=== PATIENT | female | born 1980 | race African-American/Black ===

== ENCOUNTER 2017-03-28 18:51 | Emergency (ER) | payer SELFPAY ==
[2017-03-28] MEDS ORDERED: RINGERS SOLUTION,LACTATED 1,000 ML IV ONE (19:44)
[2017-03-28] MEDS ORDERED: METOCLOPRAMIDE HCL INJ/PF 10 MG/2 ML SDV IV ONE (19:45)
--- NOTE | 2017-03-28 19:45 | ER Document Report ---
ED GI/ - General Mode of Arrival: Ambulatory Information source: Patient TRAVEL OUTSIDE OF THE [place] IN LAST 30 DAYS: No - HPI Patient complains to provider of: Abdominal pain Onset: Just prior to arrival Similar symptoms previously: Yes Recently seen / treated by doctor: Yes <CATALINA ROBIN - Last Filed: 03/29/17 02:37> <SUZANNE GARCIA - Last Filed: 04/10/17 11:18> - General Chief Complaint: Abdominal Pain Stated Complaint: ABDOMINAL PAIN Time Seen by Provider: 03/28/17 19:27 Notes: Patient is a 36-year-old female who presents to the emergency department today with complaints of abdominal pain with vomiting. Patient states she was diagnosed with gastroparesis approximately 3-1/2 years ago and is being followed by a GI specialist in [place] where she currently is living. Patient states she is here for her nephew's graduation and she ran out of her Reglan yesterday. (CATALINA ROBIN) - Related Data Allergies/Adverse Reactions: No Known Allergies Allergy (Unverified 03/28/17 19:21) Past Medical History - General Information source: Patient - Social History Smoking Status: Never Smoker Cigarette use (# per day): No Chew tobacco use (# tins/day): No Frequency of alcohol use: None Drug Abuse: None Lives with: Family Family History: Reviewed & Not Pertinent Patient has suicidal ideation: No Patient has homicidal ideation: No GI Medical History: Reports: Hx Gastroesophageal Reflux Disease Past Surgical History: Reports: Hx Cholecystectomy, Hx Tubal Ligation <CATALINA ROBIN - Last Filed: 03/29/17 02:37> Review of Systems - Review of Systems Constitutional: No symptoms reported EENT: No symptoms reported Cardiovascular: No symptoms reported Respiratory: No symptoms reported Gastrointestinal: See HPI, Abdominal pain, Nausea, Vomiting Genitourinary: No symptoms reported Female Genitourinary: No symptoms reported Musculoskeletal: No symptoms reported Skin: No symptoms reported Hematologic/Lymphatic: No symptoms reported Neurological/Psychological: No symptoms reported -: Yes All other systems reviewed and negative <CATALINA ROBIN - Last Filed: 03/29/17 02:37> Physical Exam <CATALINA ROBIN - Last Filed: 03/29/17 02:37> <SUZANNE GARCIA - Last Filed: 04/10/17 11:18> - Vital signs Vitals: Pulse Resp BP Pulse Ox 101 H 20 147/100 H 100 03/28/17 18:57 03/28/17 18:57 03/28/17 18:57 03/28/17 18:57 - Notes Notes: Physical Exam: General: Belligerent, curled up into position writhing around in apparent pain. HEENT: Normocephalic. Atraumatic. PERRL. Extraocular movements intact. Oropharynx clear. Neck: Supple. Non-tender. Respiratory: No respiratory distress. Clear and equal breath sounds bilaterally. Cardiovascular: Regular rate and rhythm. Abdominal: Mild diffuse abdominal tenderness with palpation. No distension. Normal Bowel Sounds. Back: Non-tender. No deformity or step off. Extremities: Moves all four extremities. Upper extremities: Normal inspection. Normal ROM. Lower extremities: Normal inspection. No edema. Normal ROM. Neurological: Normal cognition. AAOx4. Normal speech. Skin: Warm. Dry. Normal color. (CATALINA ROBIN) Course - Laboratory Result Diagrams: 03/28/17 17:00 03/28/17 17:00 <CATALINA ORBIN - Last Filed: 03/29/17 02:37> - Laboratory Result Diagrams: 03/28/17 17:00 03/28/17 17:00 <SUZANNE GARCIA - Last Filed: 04/10/17 11:18> - Re-evaluation Re-evalutation: 03/28/17 21:10 Presents emergency department yelling and screaming at the top of her legs demanding Dilaudid on examination in a position screening with her mom at the bedside history of chronic abdominal pain gastroparesis visiting from [place] states that she goes to the emergency room and they always give her Dilaudid. States she ran out of the Reglan yesterday and has a GI specialist there. States her typical episode of her gastroparesis not associated with any active vomiting at the bedside. Denies a chance of urinary symptoms or anything different from her previous episodes. No fevers or chills. Patient way out of proportion to physical exam yelling and screaming at the top of her lungs to the point where stroke patient family members became concerned and we had to go in and tell her to calm down and stop yelling. Serial abdominal examinations no active vomiting no acute guarding rebound rigidity pulsatile no masses or hernias. Good bowel sounds and no acute surgical findings. Labs are stable and nonacute. Patient did not produce any urine sample. Patient begging and pleading for Dilaudid I explained to her that I am not going to treat gastroparesis with narcotics as that is opposite treatment for gastroparesis and her GI specialist told her the same. Discharge her on a prescription for Reglan follow-up with her GI specialist primary care in 2-3 days and discussed reasons for ED return sooner (SUZANNE GARCIA) - Vital Signs Vital signs: Temp Pulse Resp BP Pulse Ox 101 H 22 H 122/81 100 03/28/17 18:57 03/28/17 21:01 03/28/17 21:01 03/28/17 21:01 - Laboratory Laboratory results interpreted by me: 03/28/17 03/28/17 17:00 17:00 Hgb 11.2 L Hct 35.6 L MCHC 31.3 L RDW 16.9 H Potassium 3.3 L Glucose 117 H AST 38 H Total Protein 8.7 H Discharge <CATALINA ROBIN - Last Filed: 03/29/17 02:37> <SUZANNE GARCIA - Last Filed: 04/10/17 11:18> - Discharge Clinical Impression: Chronic abdominal pain, history gastroparesis Condition: Stable Disposition: HOME, SELF-CARE Instructions: Abdominal Pain ([facility]) Additional Instructions: Abdominal Pain There are many causes of abdominal pain. Pain can mean a serious problem requiring surgery (such as appendicitis). It can also be an innocent problem that goes away on its own (such as a viral infection). Often, time must pass to determine the cause of pain. The physician does not feel that hospitalization is necessary, at present. Things may change within the next 24 hours. Call the doctor or come back for re- examination if any problems occur, such as: (1) Pain that becomes more severe, steady, or becomes concentrated in one specific area. Also, pain that is more severe with movement or coughing. (2) Vomiting that persists or becomes more frequent. (3) Blood in the vomitus, urine, or bowel movements. Blood in the stool may have a tarry or black appearance. (4) Shaking chills or fever greater than 100 degrees F. (5) The abdomen becomes more distended or swollen. (6) Bowel movements cease. (7) Failure to improve as expected. Follow-up with your GI specialist in [place] primary care physician for ongoing chronic related conditions and return for increasing worsening or new symptoms Prescriptions: Metoclopramide HCl [Reglan 10 mg Tablet] 1 - 2 tab PO ASDIR PRN #25 tablet PRN Reason: Scribe Attestation: 03/28/17 21:10 I personally performed the services described in the documentation reviewed the documentation recorded by my scribe in my presence and it accurately and completely records my words and actions (SUZANNE GARCIA) Scribe Documentation - Scribe Written by Wes:: Wes Doty, 03/29/2017 [id number] acting as scribe for :: Cristino <CATALINA ROBIN - Last Filed: 03/29/17 02:37>
[2017-03-28 20:30] LABS: ALANINE AMINOTRANSFERASE 25 U/L (9-52); ALBUMIN 4.9 g/dL (3.5-5.0); ALKALINE PHOSPHATASE 58 U/L (38-126); ANION GAP 17 (5-19); ASPARTATE AMINO TRANSFERASE 38 U/L (14-36); BILIRUBIN,DIRECT 0.4 mg/dL (0.0-0.4); BILIRUBIN,TOTAL 0.4 mg/dL (0.2-1.3); BLOOD UREA NITROGEN 11 mg/dL (7-20); CALCIUM 10.1 mg/dL (8.4-10.2); CARBON DIOXIDE 22 mmol/L (22-30); CHLORIDE 102 mmol/L (98-107); CREATININE RESULT 0.86 mg/dL (0.52-1.25); GLUCOSE 117 mg/dL (75-110); POTASSIUM 3.3 mmol/L (3.6-5.0); SODIUM 141.1 mmol/L (137-145); TOTAL PROTEIN 8.7 g/dL (6.3-8.2)
[2017-03-28 20:32] LABS: ABSOLUTE LYMPHOCYTES (AUTO) 1.9 10^3/uL (0.5-4.7); ABSOLUTE MONOCYTES (AUTO) 0.6 10^3/uL (0.1-1.4); ABSOLUTE NEUT (AUTO) 3.3 10^3/uL (1.7-8.2); BASOPHILS % (AUTO) 0.8 % (0-2); EOSINOPHILS % (AUTO) 0.6 % (0-6); HEMATOCRIT 35.6 % (36.0-47.0); HEMOGLOBIN 11.2 g/dL (12.0-15.5); LYMPHOCYTES % (AUTO) 32.6 % (13-45); MEAN CORPUSCULAR HEMOGLOBIN 27.4 pg (27.0-33.4); MEAN CORPUSCULAR HGB CONC 31.3 g/dL (32.0-36.0); MEAN CORPUSCULAR VOLUME 88 fl (80-97); MONOCYTES % (AUTO) 9.6 % (3-13); RED BLOOD COUNT 4.07 10^6/uL (3.72-5.28); RED CELL DISTRIBUTION WIDTH 16.9 % (11.5-14.0); SEGMENTED NEUTROPHILS % (AUTO) 56.4 % (42-78); WHITE BLOOD COUNT 5.9 10^3/uL (4.0-10.5)
[2017-03-28 21:48] VITALS: BP 122/81
== END 2017-03-28 21:10 | disposition home or self-care (01) ==
LOC: ER 18:51
DX: G89.29 Other chronic pain (principal); R10.9 Unspecified abdominal pain; R11.10 Vomiting, unspecified; K21.9 Gastro-esophageal reflux disease without esophagitis; Z90.49 Acquired absence of other specified parts of digestive tract; Z98.51 Tubal ligation status
CPT/HCPCS: 99284; 96374; 36415; 83690; 85025; 80053; J2765; J7120